=== PATIENT | male | born 1960 | race Caucasian/White ===

== ENCOUNTER 2019-03-26 11:56 | Day surgery (SDC) | payer BC ==
[~2019-03-26] VITALS: Ht 172.7 cm; Wt 87.4 kg
[~2019-03-26 11:56] MED LIST: HYDROCORTISONE CREAM; LISINOPRIL; METFORMIN
[2019-03-26 13:00] VITALS: Ht 172.7 cm; Wt 87.4 kg
[2019-03-26 14:30] VITALS: BP 128/79; PULSE 66; RESP 20
[2019-03-26] MEDS ORDERED: PROPOFOL 20 ML ONE ×2 (14:44→15:10)
[2019-03-26 15:40] VITALS: BP 122/79; RESP 20
== END 2019-03-26 16:43 | disposition home or self-care (01) ==
LOC: GIL 11:56
PROVIDERS: ATTEND Internal Medicine Gastroenterology
DX: Z12.11 Encounter for screening for malignant neoplasm of colon (principal); K57.30 Diverticulosis of large intestine without perforation or abscess without bleeding; K64.8 Other hemorrhoids; I10 Essential (primary) hypertension; E11.9 Type 2 diabetes mellitus without complications; Z79.84 Long term (current) use of oral hypoglycemic drugs
CPT/HCPCS: 45378; 82962; Z7610